=== PATIENT | female | born 1980 | race Caucasian/White ===

== ENCOUNTER 2019-06-05 17:38 | Emergency (ER) | payer OTHER ==
--- OUTSIDE RECORDS SUMMARY | 2019-06-05 18:06 | XMS REPORT | Continuity of Care Document ---
:1980 External Reference #:[id number] Author Name Alfredo Ponce MD (transmitted by agent of provider Ena Avery) Address [address], [place] [address] Care Team Providers Name Role Phone Sofi Ferrari MD - Family Care Team Information Layout Former [phone] Medicine Problems Active Problems Provider Date Prepatellar bursitis, left knee Alfredo Ponce MD Onset: 04/11/2019 Iliotibial band friction syndrome Alfredo Ponce MD Onset: 05/14/2017 Sprain of hip Alfredo Ponce MD Onset: 05/14/2017 Social History Type Date Description Comments Sex Unknown ETOH Use Denies alcohol use Tobacco Use Start: Unknown Patient is a current smoker, smokes every day Smoking Status Reviewed: 04/11/19 Patient is a current smoker, smokes every day Exercise Type/Frequency Exercises regularly Allergies, Adverse Reactions, Alerts Description No Known Drug Allergies Medications Active Medications SIG Qnty Indications Ordering Date Provider Methylprednisolone 6 by mouth 21units Alfredo Ponce, 04/06/2019 4mg TBPK day 1, 5 by MD mouth day 2, 4 by mouth day 3, 3 by mouth day 4, 2 by mouth day 5, 1 by mouth day 6 Diclofenac Sodium take 1 by 30tabs M70.42 Alfredo Ponce, 03/02/[address] mouth twice a MD day as needed for pain Amoxicillin/Clavulanate TK 1 T PO bid Unknown Potassium 875-125mg Tablets Immunizations Description No Information Available Vital Signs Date Vital Result Comment 04/11/2019 7:57am Height 65.5 inches 5'5.50" Weight 160.00 lb Heart Rate 99 /min BP Systolic 110 mmHg BP Diastolic 62 mmHg Body Temperature 98.6 F Pain Level 5 BMI (Body Mass Index) 26.2 kg/m2 03/30/2019 3:48pm Height 65.5 inches 5'5.50" Weight 160.00 lb Heart Rate 77 /min BP Systolic 120 mmHg BP Diastolic 70 mmHg Body Temperature 98.9 F Pain Level 5 BMI (Body Mass Index) 26.2 kg/m2 Results Description No Information Available Procedures Description No Information Available Medical Devices Description No Information Available Encounters Type Date Location Provider Dx Diagnosis Office Visit 03/30/2019 Orthopedic Alfredo Ponce MD M70.42 Prepatellar 3:[facility] bursitis, left knee M25.562 Pain in left knee M76.32 Iliotibial band syndrome, left leg Office Visit 03/02/2019 2:15p [facility] Alfredo Ponce M70.42 [facility], left [facility] knee M25.562 Pain in left knee Assessments Date Code Description Provider 04/11/2019 [id number] Prepatellar bursitis, left knee Alfredo Ponce MD 04/11/2019 M76.32 Iliotibial band syndrome, left leg Alfredo Ponce MD 03/30/2019 M70.42 Prepatellar bursitis, left knee Alfredo Ponce MD 03/30/2019 M25.562 Pain in left knee Alfredo Ponce MD 03/30/2019 M76.32 Iliotibial band syndrome, left leg Alfredo Ponce MD 03/02/2019 M70.42 Prepatellar bursitis, left knee Alfredo Ponce MD 03/02/2019 M25.562 Pain in left knee Alfredo Ponce MD Plan of Treatment Future Appointment(s):04/27/2019 2:15 pm - Alfredo Ponce MD at [facility]04/11/2019 - Alfredo Ponce MDM70.42 Prepatellar bursitis, left kneeFollow up:Follow up: 2-3 [id number] Iliotibial band syndrome, left leg Functional Status Description No Information Available Mental Status Description No Information Available Referrals Description No Information Available
--- NOTE | 2019-06-05 20:49 | ED ---
Lower Extremity - HPI Summary HPI Summary: 38 yo female presents with right calf pain. She tells me that she has a history of protein C def and has a superficial blood clot already in her right calf. Today she developed pain and cramping in her right calf that is worse with ambulation. She became concerned for DVT and called her PCP who referred her to the ED. No recent travel, no SOB, chest pain, injury, or recent illness. - History of Current Complaint Chief Complaint: EDExtremityLower Stated Complaint: RT LEG SWOLLEN PER PT Time Seen by Provider: 06/05/19 20:48 Hx Obtained From: Patient Hx Last Menstrual Period: 10/30/16 Severity Initially: Mild Severity Currently: Mild Pain Intensity: 4 Pain Scale Used: 0-10 Numeric - Allergies/Home Medications Allergies/Adverse Reactions: Allergies Allergy/AdvReac Type Severity Reaction Status Date / Time No Known Allergies Allergy Verified 06/01/19 09:08 PMH/Surg Hx/FS Hx/Imm Hx Endocrine/Hematology History: Reports: Other Endocrine/Hematological Disorders - protein C def Denies: Hx Anticoagulant Therapy Cardiovascular History: Reports: Hx Deep Vein Thrombosis Musculoskeletal History: Reports: Other Musculoskeletal History - Rt calf tear in 2013 Neurological History: Denies: Hx Peripheral Neuropathy, Hx Spinal Cord Injury - Surgical History Surgery Procedure, Year, and Place: tubal clamps march 2009 Infectious Disease History: No Infectious Disease History: Denies: History Other Infectious Disease, Traveled Outside the [place] in Last 30 Days - Family History Known Family History: Positive: Unknown, Diabetes - Father on dialysis secondary to DM, Other - migraines - Social History Lives: With Family Alcohol Use: Occasionally Hx Substance Use: No Substance Use Type: Reports: None Hx Tobacco Use: Yes Smoking Status (MU): Heavy Every Day Tobacco Smoker Type: Cigarettes Amount Used/How Often: half pack per day Review of Systems Constitutional: Negative Eyes: Negative ENT: Negative Cardiovascular: Negative Respiratory: Negative Gastrointestinal: Negative Genitourinary: Negative Musculoskeletal: Other - Right calf pain Skin: Negative Neurological: Negative Psychological: Normal All Other Systems Reviewed And Are Negative: No Physical Exam - Summary Physical Exam Summary: GENERAL: NAD. WDWN. No pain distress. SKIN: No rashes, sores, lesions, or open wounds. CHEST: No accessory muscle use. Breathing comfortably and in no distress. CV: Pulses intact PT and DP. Cap refill <2seconds MSK: RIGHT CALF: Mild TTP about entire calf. Soft and without edema. FROM right ankle. Negative jerrell sign. NEURO: Alert. Sensations intact and symmetric B/L LEs PSYCH: Age appropriate behavior. Triage Information Reviewed: Yes Vital Signs On Initial Exam: Initial Vitals Temp Pulse Resp BP Pulse Ox 97.5 F 76 16 126/86 98 06/05/19 17:52 06/05/19 17:52 06/05/19 17:52 06/05/19 17:52 06/05/19 17:52 Vital Signs Reviewed: Yes Procedures - Sedation Patient Received Moderate/Deep Sedation with Procedure: No Diagnostics - Vital Signs Vital Signs Temp Pulse Resp BP Pulse Ox 06/05/19 20:26 97.3 F 62 15 123/89 100 06/05/19 17:52 97.5 F 76 16 126/86 98 - Laboratory Lab Statement: Any lab studies that have been ordered have been reviewed, and results considered in the medical decision making process. - Ultrasound Right leg Ultrasound Interpretation Completed By: Radiologist Summary of Ultrasound Findings: IMPRESSION: No acute DVT of the right lower extremity vein. 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 Findings unchanged from prior study of 02/24/2017. Lower Extremity Course/Dx - Course Course Of Treatment: US as above. Discussed results with pt. Will dc with dx of calf pain and have her f/u with her PCP if symptoms do not improve with rest , elevation, and tylenol as directed. Pt voiced understanding and agrees with the plan - Diagnoses Provider Diagnoses: Right calf pain Discharge ED - Sign-Out/Discharge Documenting (check all that apply): Patient Departure - Discharge Plan Condition: Stable Disposition: HOME Patient Education Materials: Superficial Thrombophlebitis (ED) Referrals: Sofi Ferrari MD [Primary Care Provider] - Additional Instructions: If you develop a fever, shortness of breath, chest pain, new or worsening symptoms - please call your PCP or go to the ED immediately. - Billing Disposition and Condition Condition: STABLE Disposition: Home
[2019-06-05 20:57] VITALS: BP 129/87
== END 2019-06-05 20:56 | disposition home or self-care (01) ==
LOC: ED 17:38
DX: M79.661 Pain in right lower leg (principal); I82.531 Chronic embolism and thrombosis of right popliteal vein; F17.210 Nicotine dependence, cigarettes, uncomplicated
CPT/HCPCS: 99282

== ENCOUNTER 2019-06-27 17:11 | Emergency (ER) | payer OTHER ==
[2019-06-27 18:12] VITALS: BP 127/82
--- NOTE | 2019-06-27 18:17 | UC ---
Throat Pain/Nasal [place] HPI - HPI Summary HPI Summary: 38 yo female presents with sinus symptoms. She tells me that for the last week she has had sinus pain/pressure/congestion and cough. She has been taking sudafed and OTC cold medicine with no relief. She is having pain in her right nare and feels a bump here - says this happens every time she gets a cold and it resolves when her cold resolves. She has felt feverish, but has not taken her temperature. Denies SOB, rash, abdominal pain, n/v. - History of Current Complaint Chief Complaint: UCRespiratory Stated Complaint: CHEST CONGESTION Time Seen by Provider: 06/27/19 18:17 Hx Obtained From: Patient Hx Last Menstrual Period: <1 week ago Onset/Duration: Gradual Onset Severity: Mild Pain Intensity: 4 Pain Scale Used: 0-10 Numeric - Allergies/Home Medications Allergies/Adverse Reactions: Allergies Allergy/AdvReac Type Severity Reaction Status Date / Time No Known Allergies Allergy Verified 06/27/19 18:12 Home Medications: Home Medications D-Methorphan/PE/Acetaminophen [Tylenol Cold Multi-Symp Caplet] 2 each PO PRN [History] PMH/Surg Hx/FS Hx/Imm Hx - Additional Past Medical History Additional PMH: None Other History Of: Negative For: Anticoagulant Therapy - Surgical History Surgical History: Yes Surgery Procedure, Year, and Place: tubal ligation march 2009 - Family History Known Family History: Positive: Unknown, Diabetes - Father on dialysis secondary to DM, Other - migraines - Social History Lives: With Family Alcohol Use: Occasionally Substance Use Type: None Smoking Status (MU): Current Every Day Smoker Type: Cigarettes Amount Used/How Often: half pack per day Household Exposure Type: Cigarettes Review of Systems All Other Systems Reviewed And Are Negative: No Constitutional: Positive: Negative Skin: Positive: Negative Eyes: Positive: Negative ENT: Positive: Sore Throat, Nasal Discharge, Sinus Congestion, Sinus Pain/ Tenderness Respiratory: Positive: Cough Cardiovascular: Positive: Negative Gastrointestinal: Positive: Negative Neurological: Positive: Negative Psychological: Positive: Negative Physical Exam - Summary Physical Exam Summary: GENERAL: NAD. WDWN. No pain distress. SKIN: No rashes, sores, lesions, or open wounds. HEENT: Head: AT/NC Eyes: EOM intact. Conjunctiva clear without inflammation or discharge. Ears: Hearing grossly normal. TMs intact, no bulging, erythema, or edema. Nose: Nasal mucosa mildly swollen and erythematous with yellow/ clear discharge. TTP maxillary > frontal sinus. Positive post nasal drip. No pustule or nodule appreciated in right nare at area of pain. Throat: Posterior oropharynx without exudates, erythema, or tonsillar enlargement. Uvula midline. NECK: Supple. Nontender. No lymphadenopathy. CHEST: CTAB. No r/r/w. No accessory muscle use. Breathing comfortably and in no distress. CV: RRR. Pulses intact. NEURO: Alert. PSYCH: Age appropriate behavior. Triage Information Reviewed: Yes Vital Signs: Initial Vital Signs Temp 98.5 F 06/27/19 18:08 Pulse 78 06/27/19 18:08 Resp 16 06/27/19 18:08 BP 127/82 06/27/19 18:08 Pulse Ox 100 06/27/19 18:08 Vital Signs Reviewed: Yes Throat Pain/Nasal Course/Dx - Course Course Of Treatment: Discussed viral vs bacterial causes with the pt and she prefers to be on anbx at this time. - Differential Dx/Diagnosis Provider Diagnosis: Sinusitis Discharge ED - Sign-Out/Discharge Documenting (check all that apply): Patient Departure All imaging exams completed and their final reports reviewed: No Studies - Discharge Plan Condition: Stable Disposition: HOME Prescriptions: Amoxicillin PO (*) [Amoxicillin 875 MG (*)] 875 mg PO BID #14 tab Mupirocin 2% OINT* [Bactroban 2 % Oint*] 1 applic TOPICAL BID #1 tube Patient Education Materials: Sinusitis (ED) Referrals: Sofi Ferrari MD [Primary Care Provider] - Vinnie Bertrand MD [Medical Doctor] - As Soon As Possible Additional Instructions: If you develop a fever, shortness of breath, chest pain, new or worsening symptoms - please call your PCP or go to the ED immediately. - Billing Disposition and Condition Condition: STABLE Disposition: Home
== END 2019-06-27 18:38 | disposition home or self-care (01) ==
LOC: UCEAST 17:11
DX: J32.9 Chronic sinusitis, unspecified (principal); J02.9 Acute pharyngitis, unspecified; F17.210 Nicotine dependence, cigarettes, uncomplicated
CPT/HCPCS: 99212; G0463

== ENCOUNTER 2023-11-11 18:27 | Inpatient (IN) ==
[2023-11-11 19:36] LABS: Urine Appearance No Cx Clear (Clear); Urine Bilirubin No Culture Negative (Negative); Urine Blood No Culture 1+ (Negative); Urine Color No Culture Yellow; Urine Glucose No Culture Negative (Negative); Urine Ketones No Culture Negative (Negative); Urine Leukocytes No Culture 75 (1+) Leu/uL (Negative); Urine Nitrite No Culture Negative (Negative); Urine Protein No Culture Trace (Negative); Urine Specific Gravity No Cx 1.023 (1.002-1.030); Urine Urobilinogen No Cx Negative (Negative); Urine pH No Culture 5.5 (5.0-8.0)
[2023-11-11 19:40] LABS: Ur Squamous Epithelial No Cx Present /HPF (Absent); Urine Bacteria No Culture Absent /HPF (Absent); Urine Red Blood Cell No Cult 2+(6-10/hpf) /HPF (0-Trace); Urine White Blood Cell No Cult Trace(0-5/hpf) /HPF (0-Trace)
[2023-11-11 19:41] LABS: ABS Basophils 0.1 10^3/uL (0.0-0.1); ABS Eosinophils 0.2 10^3/uL (0.0-0.5); ABS Lymphocytes 2.9 10^3/uL (1.0-4.8); ABS Monocytes 0.7 10^3/uL (0.0-0.9); ABS Neutrophils 6.7 10^3/uL (1.5-7.6); ABS Nucleated RBC 0.01 10^3/ul; Eosinophil % 1.9 %; Hematocrit 45.7 % (35-45); Hemoglobin 15.6 g/dL (11.5-14.3); Lymphocyte % 27.3 %; Mean Corpuscular Hemoglobin 30.7 pg (27-33); Mean Corpuscular Hgb Conc 34.1 g/dL (31-36); Mean Corpuscular Volume 90.1 fL (80-97); Mean Platelet Volume 7.2 fL (7.5-11.2); Platelet Count 292 10^3/uL (150-450); Red Blood Count 5.07 10^6/uL (3.63-4.92); Red Cell Distribution Width 13.6 % (12-17); White Blood Count 10.6 10^3/uL (3.8-11.8)
[2023-11-11 20:08] LABS: Urine Benzodiazepine Screen None Detected (None Detect); Urine Cannabinoids Screen None Detected (None Detect); Urine Opiates Screen None Detected (None Detect)
[2023-11-11 20:19] LABS: ALT 8 U/L (7-52); AST 11 U/L (13-39); Acetaminophen < 15 mcg/mL; Albumin 4.5 g/dL (3.2-5.2); Albumin/Globulin Ratio 1.5 (1-3); Alcohol, S < 13 mg/dL (<13); Alkaline Phosphatase 60 U/L (35-149); Anion Gap 8 mmol/L (2-16); Blood Urea Nitrogen 17 mg/dL (6-24); CO2 Carbon Dioxide 28 mmol/L (22-32); Calcium 9.6 mg/dL (8.6-10.3); Chloride 101 mmol/L (101-111); Creatinine, Serum 0.84 mg/dL (0.51-0.95); Globulin 3.1 g/dL (2-4); Glucose 122 mg/dL (70-100); Potassium 3.7 mmol/L (3.5-5.0); Salicylate < 2.50 mg/dL (<30); Sodium 137 mmol/L (135-145); Total Bilirubin 0.4 mg/dL (0.2-1.0); Total Protein 7.6 g/dL (6.4-8.9); eGFR CKD-EPI 87.8 (>60)
[2023-11-11 20:34] LABS: TSH Ultra Thyroid Stim Horm 1.07 mcIU/mL (0.34-5.60)
[2023-11-11] MEDS ORDERED: LoraTADine 10 mg TAB (NF) PO ONE (22:00)
[2023-11-11] MEDS ORDERED: Nicotine GUM 2MG FRUIT FLAVOR PO PRN (23:00)
[2023-11-11] MEDS ORDERED: Al Hydrox/Mg Hydrox/Simet LIQ 30 ML UDC PO PRN (23:33)
[2023-11-12] MEDS: Nicotine PATCH 21 MG/24 HR PATCH TRANSDERM SCH (08:25)
[2023-11-12] MEDS: Vitamin THERAPEUTIC TAB PO SCH (08:27)
[2023-11-15 08:19] VITALS: BP 101/61
== END 2023-11-15 12:00 | disposition home or self-care (01) | DRG 755 ==
LOC: ED 18:27 → EDHOLD 22:43 → BSU 23:44
PROVIDERS: ADMIT Psychiatry & Neurology Psychiatry; ATTEND Student in an Organized Health Care Education/Training Program